=== PATIENT | male | born 1995 | race African-American/Black ===

== ENCOUNTER 2020-12-10 08:44 | Emergency (ER) | payer BC, SELFPAY ==
--- NOTE | ~2020-12-10 | XR_ITS ---
EXAMINATION: XR chest 2V 12/10/2020 09:16 INDICATION: Cough PROCEDURE: 2 view chest COMPARISON: No prior studies for comparison. FINDINGS: The lungs are clear. The cardiomediastinal silhouette is within normal limits. There are no pleural effusions. There is no pneumothorax suspected. IMPRESSION: 1: NO ACUTE CARDIOPULMONARY DISEASE. Reviewed, dictated and finalized at location B.
--- NOTE | 2020-12-10 08:55 | ED.GENADULT ---
HPI - General Adult General Chief complaint: Upper Respiratory Infection Stated complaint: cough/congestion Time Seen by Provider: 12/10/20 08:55 Source: patient and RN notes reviewed Mode of arrival: ambulatory Limitations: no limitations History of Present Illness HPI narrative: 25-year-old -[place] male presents with complaints of dry cough and chest congestion for the past 2 weeks. Ishmeal reports constant cough with treatment. DayQuil, NyQuil, and cough drops initially no treatment in the last 48 hours, without relief. Cough with chest congestion. Rhinorrhea and nasal congestion. Denies high fevers, drooling, neck or throat swelling. No chest pain, wheezing, or shortness of breath. Denies nausea, vomiting, and abdominal pain. Tolerating liquids well. Remains active. The patient reports he was diagnosed with COVID-28 March 2020, no new symptoms. The patient reports he is not waiting for the results of a COVID-19 lab test. The patient reports he do not have chills, weakness, or fatigue. The patient reports he do not have any loss of taste or smell, sore throat, and diarrhea. Denies recent traveling. Denies concerns for COVID-19 or exposures been home with limited outdoor exposure except for essential household needs, school, and return home. At this time, patient is not suspected of having COVID-19. Some parts of this dictation were generated by voice recognition software and may contain typographical and/or grammatical inaccuracies. Related Data Home Medications Medication Instructions Recorded Confirmed Truvada 12/10/20 Allergies Allergy/AdvReac Type Severity Reaction Status Date / Time No Known Allergies Allergy Verified 12/10/20 08:52 Review of Systems Review of Systems: Narrative: CONSTITUTIONAL: Denies fever, sweats, chills, fatigue. EYES: Denies visual changes, redness, discharge. ENT: Complains of congestion, rhinorrhea. Denies sore throat, otalgia. CARDIOVASCULAR: Denies chest pain, palpitations, edema. RESPIRATORY: Denies dyspnea, wheezing. Complains of cough, chest congestion. GASTROINTESTINAL: Denies abdominal pain, nausea, vomiting, diarrhea. GENITOURINARY: Denies dysuria, hematuria, abnormal discharge. SKIN: Denies rash or itching. MUSCULOSKELETAL: Denies acute back pain, joint pain, or myalgia. NEUROLOGIC: Denies numbness or focal weakness. PSYCHIATRIC: Denies anxiety or depression. [facility] Past Medical History Medical History (Updated 12/15/20 @ 18:52 by HARJEET Luis) COVID-19 03/2020 No significant past medical history Take Truvada to prevent HIV Surgical History Surgical History (Updated 12/10/20 @ 09:19 by HARJEET Luis) No significant past surgical history Family History Family History (Updated 12/15/20 @ 18:53 by HARJEET Luis) Father Acute myocardial infarction, Onset Age: 60 Cerebrovascular accident Mother Asthma Hypertension Social History Social History (Updated 12/10/20 @ 09:34 by HARJEET Luis) Smoking status: Never smoker Tobacco type: cigarettes Second hand tobacco smoke exposure: No Alcohol intake: current Substance use: never Living arrangements: alone Occupation/Education: student Gender identity (if verbalized by the patient): Male Sexual Orientation (if Verbalized by the Patient): Lesbian, Cruz, or Homosexual Comments At time of signature, agree with nurse past medical, surgical, social, and family history. There is no relevant family history pertinent to the presenting complaint. Exam Narrative: Exam Narrative: GENERAL: This is a well-nourished, well-developed patient, in no apparent distress. Talks in full sentences and ambulates with steady gait without dyspnea. HEAD: Normocephalic, atraumatic. EYES: PERRL. Sclera clear/white. Vision is grossly intact. EARS: External ears normal, auditory canals clear and without drainage, TMs normal without perforation. Hearing
[2020-12-10 08:57] VITALS: BP 145/84; PULSE 79; RESP 16; TEMP 36.7; O2SAT 100
== END 2020-12-10 09:35 | disposition home or self-care (01) ==
PROVIDERS: Emergency Provider Nurse Practitioner Family
DX: J32.9 Chronic sinusitis, unspecified (principal); J06.9 Acute upper respiratory infection, unspecified
CPT/HCPCS: 71046; 99203; G0463